=== PATIENT | male | born 1930 | race Caucasian/White ===

== ENCOUNTER 2017-10-24 18:16 | Observation (INO) | payer OTHER, MEDICARE ==
--- NOTE | 2017-10-24 19:17 | CPEKG ---
Heart Rate: 58 RR Interval: 1034 P-R Interval: 200 QRSD Interval: 88 QT Interval: 444 QTC Interval: 437 P [place]: -35 QRS [place]: -15 T Wave [place]: 6 EKG Severity - ABNORMAL ECG - EKG Impression: SINUS RHYTHM EKG Impression: MULTIPLE VENTRICULAR PREMATURE COMPLEXES EKG Impression: BORDERLINE LEFT AXIS DEVIATION Electronically Signed By: Danny Alvarez 24-Oct-2017 19:29:22
[2017-10-24] MEDS ORDERED: NS 1,000 ML IV ONE (19:23)
--- NOTE | 2017-10-24 19:32 | EDPHY ---
H & P Stated Complaint: LIGHTHEADED FOR WEEKS/SAW PCP CHEST FEELS WEIRD/NO PAIN Time Seen by Provider: 10/24/17 19:12 HPI/ROS: CHIEF COMPLAINT: Lightheadedness HISTORY OF PRESENT ILLNESS: Patient is an 87-year-old man with a history of hypertension as well as mild aortic and mitral valve stenosis who is been complaining of increasing lightheadedness over last few weeks. His primary doctor Lev ordered an echo but cannot be scheduled for few weeks out so Dr. Ohara recommended the patient come to the ER to have an echo today. He denies having any pain. No shortness of breath. No fevers or cough. He reports having a CT with contrast of his neck in July that was normal. The his last echo was several years ago. He has not felt palpitations or dizziness. REVIEW OF SYSTEMS: Constitutional: denies: chills, fever, recent illness, recent injury EENTM: denies: blurred vision, double vision, nose congestion Respiratory: denies: cough, shortness of breath Cardiac: See HPI denies: chest pain, irregular heart rate, palpitations Gastrointestinal/Abdominal: denies: abdominal pain, diarrhea, nausea, vomiting, blood streaked stools Genitourinary: denies: dysuria, frequency, hematuria, pain Musculoskeletal: denies: joint pain, muscle pain Skin: denies: lesions, rash, jaundice, bruising Neurological: denies: headache, numbness, paresthesia, tingling, dizziness, weakness Hematologic/Lymphatic: denies: blood clots, easy bleeding, easy bruising Immunologic/allergic: denies: HIV/AIDS, transplant EXAM: GENERAL: Well-appearing, well-nourished and in no acute distress. HEAD: Atraumatic, normocephalic. EYES: Pupils equal round and reactive to light, extraocular movements intact, sclera anicteric, conjunctiva are normal. ENT: TMs normal, nares patent, oropharynx clear without exudates. Moist mucous membranes. NECK: Normal range of motion, supple without lymphadenopathy or JVD. LUNGS: Breath sounds clear to auscultation bilaterally and equal. No wheezes rales or rhonchi. HEART: Bradycardic and irregular, without murmurs, rubs or gallops. ABDOMEN: Soft, nontender, normoactive bowel sounds. No guarding, no rebound. No masses appreciated. BACK: No CVA tenderness, no spinal tenderness, step-offs or deformities EXTREMITIES: Normal range of motion, no pitting or edema. No clubbing or cyanosis. NEUROLOGICAL: Cranial nerves II through XII grossly intact. Normal speech, normal gait. 5/5 strength, normal movement in all extremities, normal sensation PSYCH: Normal mood, normal affect. SKIN: Warm, dry, normal turgor, no visible rashes or lesions. Source: Patient, Family Exam Limitations: No limitations - Personal History Current Tetanus Diphtheria and Acellular Pertussis (TDAP): Yes Tetanus Vaccine Date: 2006 - Medical/Surgical History Hx Asthma: No Hx Chronic Respiratory Disease: No Hx Diabetes: No Hx Cardiac Disease: Yes Hx Renal Disease: No Hx Cirrhosis: No Hx Alcoholism: No Hx HIV/AIDS: No Hx Splenectomy or Spleen Trauma: No Other PMH: PMHx: Mild mitral and aortic valve stenosis, hypothyroidism,. PSHx : bilat shoulder surgeries,L hip, lumbar laminectomies, lymph gland removal, cataracts, appy - Family History Significant Family History: No pertinent family hx - Social History Smoking Status: Former smoker Alcohol Use: Sober Drug Use: None Constitutional: Initial Vital Signs Temperature (C) 36.3 C 10/24/17 18:23 Heart Rate 58 L 10/24/17 18:23 Respiratory Rate 18 10/24/17 18:23 Blood Pressure 165/80 H 10/24/17 18:23 O2 Sat (%) 95 10/24/17 18:23 O2 Delivery Mode Room Air Allergies/Adverse Reactions: Penicillins Allergy (Mild, Verified 10/24/17 18:23) Rash EGGPLANT Allergy (Severe, Uncoded 01/24/12 13:40) Anaphylaxis Home Medications: Medication Instructions Recorded Ascorbic Acid [Vitamin C 500 mg 1,000 mg PO BID 10/08/12 (*)] Aspirin [Aspirin 81mg (*)] 81 mg PO DAILY 10/08/12 Cyanocobalamin [Vitamin B12 (*)] 5,000 mcg PO BID 10/08/12 Herbals/Supplements -Info Only 1 each PO AD 10/08/12 TELMISARTAN [MICARDIS] 80 mg PO DAILY 10/08/12 Atorvastatin Calcium 80 mg PO DAILY 10/24/17 Indapamide [INDAPAMIDE] 1.25 mg PO DAILY 10/24/17 Levothyroxine [Synthroid 200 mcg 200 mcg PO DAILY06 10/24/17 (*)] Medical Decision Making - Diagnostics EKG Interpretation: An EKG obtained and was read and documented in trace view. Please see trace view for full reading and report. Sinus bradycardia with multiple PVCs, no acute ischemic changes Imaging: Discussed imaging studies w/ baseboard heating installer Radiologist ED Course/Re-evaluation: 7:30 p.m. the patient is having symptomatic bradycardia. I recommended admission to the hospital after we obtain lab work. Patient is hesitant but eventually agreed. 8:00 p.m. I discussed the case with Dr. Bradford who will admit to the medical service. Differential Diagnosis: Partial list of the Differential diagnosis considered include but were not limited to; bradycardia, pre syncope, dehydration, anemia and although unlikely based on the history and physical exam, I also considered anxiety, acute coronary disease, P, CHF. Critical Care Time: Critical care time spent by me, Dr. Alvarez exclusive with this patient was 35 minutes, exclusive of the PA time exclusive of procedures. The organ system that was at risk was cardiovascular and I gave monitoring, IV fluids, admission to prevent worsening of the patient's condition - Data Points Laboratory Results: Laboratory Results 10/24/17 19:16 10/24/17 19:16 Medications Given: Discontinued Medications Aspirin (Aspirin) 81 mg PO DAILY [facility] Stop: 04/23/18 08:59 Last Admin: 10/25/17 09:35 Dose: 81 mg Atorvastatin Calcium (Lipitor) 80 mg PO DAILY [facility] Stop: 04/23/18 08:59 Last Admin: 10/25/17 09:36 Dose: 80 mg Enoxaparin Sodium (Lovenox) 40 mg SC DAILY [facility] Stop: 04/23/18 08:59 Last Admin: 10/25/17 09:35 Dose: 40 mg Sodium Chloride (Ns) 1,000 mls @ 0 mls/hr IV EDNOW ONE; Wide Open PRN Reason: Protocol Stop: 10/24/17 19:24 Last Admin: 10/24/17 19:58 Dose: 1,000 mls Indapamide (Indapamide) 1.25 mg PO DAILY [facility] Stop: 04/23/18 08:59 Last Admin: 10/25/17 09:59 Dose: 1.25 mg Levothyroxine Sodium (Synthroid) 200 mcg PO DAILY06 [facility] Stop: 04/23/18 05:59 Last Admin: 10/25/17 06:55 Dose: 200 mcg Telmisartan (Micardis) 80 mg PO HS [facility] Stop: 04/22/18 22:26 Last Admin: 10/24/17 22:51 Dose: 80 mg Vitamin B Complex (Vitamin B12) 5,000 mcg PO BID [facility] Stop: 04/23/18 08:59 Last Admin: 10/25/17 09:35 Dose: 5,000 mcg Point of Care Test Results: Chemistry 10/24/17 19:29 POC Troponin I 0.03 ng/mL ng/mL (0.00-0.08) Departure - Departure Disposition: [facility] Acute Clinical Impression: Bradycardia Condition: Fair
[2017-10-24 19:41] LABS: PLATELET COUNT 168 10^3/uL (150-400)
[2017-10-24 19:52] LABS: INR 0.97 (0.83-1.16); PROTIME(PATIENT) 13.1 SEC (12.0-15.0)
--- NOTE | 2017-10-24 20:52 | PDGENHP ---
History and Physical - Chief Complaint Lightheadedness - History of Present Illness This 87-year-old male with history of aortic and mitral stenosis presents to the emergency department with worsening lightheadedness. The patient has had bouts of lightheadedness off and on for the past few weeks. Denies any vertigo. Denies any chest pain. Denies any palpitations. He has not passed out. He describes his lightheadedness is feeling unsteady and is sometimes associated with some nausea. He has been scheduled for an echocardiogram, but this cannot be done until later this month. He has no orthopnea. He denies any dyspnea on exertion. Denies any leg swelling. He has been compliant with his medications. Emergency department he was found to be slightly bradycardic in the 50s with multiple PVCs History Information - Allergies/Home Medication List Allergies/Adverse Reactions: Penicillins Allergy (Mild, Verified 10/24/17 18:23) Rash EGGPLANT Allergy (Severe, Uncoded 01/24/12 13:40) Anaphylaxis Home Medications: Ascorbic Acid [Vitamin C 500 mg (*)] 1,000 mg PO BID 10/08/12 [Last Taken ] Aspirin [Aspirin 81mg (*)] 81 mg PO DAILY 10/08/12 [Last Taken 03/10/16] Cyanocobalamin [Vitamin B12 (*)] 5,000 mcg PO BID 10/08/12 [Last Taken 03/10/16] Herbals/Supplements -Info Only 1 each PO AD 10/08/12 [Last Taken 03/10/16] TELMISARTAN [MICARDIS] 80 mg PO DAILY 10/08/12 [Last Taken 10/23/17] Atorvastatin Calcium 80 mg PO DAILY 10/24/17 [Last Taken 10/24/17] Indapamide [INDAPAMIDE] 1.25 mg PO DAILY 10/24/17 [Last Taken 10/24/17] Levothyroxine [Synthroid 200 mcg (*)] 200 mcg PO DAILY06 10/24/17 [Last Taken ] I have personally reviewed and updated: family history, medical history, social history, surgical history Past Medical History: Hypertension, hypothyroidism, hyperlipidemia, aortic and mitral stenosis - Surgical History Additional surgical history: Lumbar laminectomy, bilateral shoulder replacements , right hip replacement, appendectomy, right hand surgery - Family History Positive for: hypertension (Mother) - Social History Smoking Status: Former smoker Alcohol Use: Sober Drug Use: None Review of Systems Review of Systems: ROS: 10pt was reviewed & negative except for what was stated in HPI & below Physical Exam Physical Exam: Temp Pulse Resp BP Pulse Ox 36.3 C 58 L 18 165/80 H 95 10/24/17 18:23 10/24/17 18:23 10/24/17 18:23 10/24/17 18:23 10/24/17 18:23 Constitutional: no apparent distress, appears nourished, not in pain Eyes: PERRL, anicteric sclera, EOMI Ears, Nose, Mouth, Throat: moist mucous membranes, hearing normal, ears appear normal, no oral mucosal ulcers Cardiovascular: regular rate and rhythym, systolic murmur, No JVD, No edema Respiratory: no respiratory distress, no rales or rhonchi, clear to auscultation Gastrointestinal: normoactive bowel sounds, soft, non-tender abdomen, no palpable masses Genitourinary: no bladder fullness, no bladder tenderness Skin: warm, normal color, no rashes or abrasions, no fluctuance, no induration, No mottled Musculoskeletal: full muscle strength, no muscle tenderness, normal joint ROM, no joint effusions Neurologic: AAOx3, CN II-XII Intact, No facial droop Psychiatric: interacting appropriately, not anxious, not encephalopathic, thought process linear Lymph, Heme, Immunologic: no cervical LAD, no supraclavicular LAD Lab Data & Imaging Review 10/24/17 19:16 10/24/17 19:16 WBC 4.79 10^3/uL (3.80-9.50) 10/24/17 19:16 RBC 3.20 10^6/uL (4.40-6.38) L 10/24/17 19:16 Hgb 12.0 g/dL (13.7-17.5) L 10/24/17 19:16 Hct 34.3 % (40.0-51.0) L 10/24/17 19:16 MCV 107.2 fL (81.5-99.8) H 10/24/17 19:16 MCH 37.5 pg (27.9-34.1) H 10/24/17 19:16 MCHC 35.0 g/dL (32.4-36.7) 10/24/17 19:16 RDW 13.5 % (11.5-15.2) 10/24/17 19:16 Plt Count 168 10^3/uL (150-400) 10/24/17 19:16 MPV 9.7 fL (8.7-11.7) 10/24/17 19:16 Neut % (Auto) 59.7 % (39.3-74.2) 10/24/17 19:16 Lymph % (Auto) 26.3 % (15.0-45.0) 10/24/17 19:16 Ward % (Auto) 11.3 % (4.5-13.0) 10/24/17 19:16 Eos % (Auto) 1.9 % (0.6-7.6) 10/24/17 19:16 Baso % (Auto) 0.4 % (0.3-1.7) 10/24/17 19:16 Nucleat RBC Rel Count 0.0 % (0.0-0.2) 10/24/17 19:16 Absolute Neuts (auto) 2.86 10^3/uL (1.70-6.50) 10/24/17 19:16 Absolute Lymphs (auto) 1.26 10^3/uL (1.00-3.00) 10/24/17 19:16 Absolute Monos (auto) 0.54 10^3/uL (0.30-0.80) 10/24/17 19:16 Absolute Eos (auto) 0.09 10^3/uL (0.03-0.40) 10/24/17 19:16 Absolute Basos (auto) 0.02 10^3/uL (0.02-0.10) 10/24/17 19:16 Absolute Nucleated RBC 0.00 10^3/uL (0-0.01) 10/24/17 19:16 Immature Gran % 0.4 % (0.0-1.1) 10/24/17 19:16 Immature Gran # 0.02 10^3/uL (0.00-0.10) 10/24/17 19:16 PT 13.1 SEC (12.0-15.0) 10/24/17 19:16 INR 0.97 (0.83-1.16) 10/24/17 19:16 APTT 30.7 SEC (23.0-38.0) 10/24/17 19:16 Sodium 133 mEq/L (135-145) L 10/24/17 19:16 Potassium 4.2 mEq/L (3.3-5.0) 10/24/17 19:16 Chloride 100 mEq/L (97-110) 10/24/17 19:16 Carbon Dioxide 26 mEq/l (22-31) 10/24/17 19:16 Anion Gap 7 mEq/L (8-16) L 10/24/17 19:16 BUN 32 mg/dL (7-23) H 10/24/17 19:16 Creatinine 1.2 mg/dL (0.7-1.3) 10/24/17 19:16 Estimated GFR 57 10/24/17 19:16 Glucose 95 mg/dL (70-100) 10/24/17 19:16 Calcium 9.1 mg/dL (8.5-10.4) 10/24/17 19:16 Total Bilirubin 0.9 mg/dL (0.1-1.4) 10/24/17 19:16 Conjugated Bilirubin 0.5 mg/dL (0.0-0.5) 10/24/17 19:16 Unconjugated Bilirubin 0.4 mg/dL (0.0-1.1) 10/24/17 19:16 AST 31 IU/L (17-59) 10/24/17 19:16 ALT 43 IU/L (21-72) 10/24/17 19:16 Alkaline Phosphatase 54 IU/L (38-126) 10/24/17 19:16 POC Troponin I 0.03 ng/mL (0.00-0.08) 10/24/17 19:29 Total Protein 6.6 g/dL (6.3-8.2) 10/24/17 19:16 Albumin 3.8 g/dL (3.5-5.0) 10/24/17 19:16 Visualized and Interpreted Chest x-ray results: Yes Chest X-Ray results: no infiltrate, normal Visualized and Interpreted EKG results: Yes EKG Interpretation: Positive for: normal sinsus rhythm (With multiple PVCs) Assessment & Plan Assessment: This 87-year-old male presenting with lightheadedness found to have: # Bradycardia with multiple PVCs in the setting of valvular heart disease # macrocytic anemia # history of hypertension # history of hypothyroidism # history of dyslipidemia Plan: -monitor on telemetry -echocardiogram -cardiology consultation in the morning -monitor blood pressure -check TSH -check vitamin B12, methylmalonic acid, homocystine, and folic acid levels
[2017-10-24] MEDS ORDERED: TELMISARTAN 40 MG TAB PO SCH (22:28)
[2017-10-25] MEDS ORDERED: LEVOTHYROXINE 200 MCG TAB PO SCH (06:00)
[2017-10-25] MEDS ORDERED: ENOXAPARIN 40 MG/0.4 ML SYR SC SCH (09:00)
[2017-10-25] MEDS ORDERED: ATORVASTATIN CALCIUM 40 MG TAB PO SCH (09:00)
[2017-10-25] MEDS ORDERED: ASPIRIN 81 MG CHEWABLE TAB PO SCH (09:00)
[2017-10-25] MEDS ORDERED: TELMISARTAN 40 MG TAB PO SCH (09:00)
[2017-10-25] MEDS ORDERED: CYANO/VITAMIN B12 1000 MCG TAB PO SCH (09:00)
[2017-10-25] MEDS ORDERED: INDAPAMIDE 2.5 MG TAB PO SCH (09:00)
--- NOTE | 2017-10-25 10:31 | ECHO ---
[email or web address] [address] Main: [phone] Fax: [email or web address] Echocardiogram Name: ANTOINE SORENSON MR#: [id number] Study Date: 10/25/2017 Study Time: 08:33 AM Date of : 1930 Age: 87 year(s) Height: 182.9 cm (72 in.) Weight: 79.38 kg (175 lb.) BSA: 2.01 m2 Gender: Male Examination: Echo Indication: f/u aortic stenosis and mitral stenosis Image Quality: Adequate Contrast: Requested by: Chicho Bradford BP: 145 mmHg/64 mmHg Heart Rate: Rhythm: Indication: f/u aortic stenosis and mitral stenosis Procedure Staff National Coverage Specialist: Heather Garcia [facility] Reading Physician: Emir Wilson MD Requesting Provider: Conclusions: Normal size left ventricle. Borderline concentric LV hypertrophy. Normal global systolic LV function. EF is 62 %. Grade 2 diastolic dysfunction (pseudonormalized LV filling pattern). Mildly dilated right ventricle. Normal RV function. The left atrium is severely dilated. The right atrium is severely dilated. Mild to moderate mitral regurgitation. Moderate aortic cusp calcification is present. Moderate calcific aortic valve stenosis. Peak Aortic Velocity of 3.41 m/s, Peak gradient 47 mmHg, mean gradient 31 mmHg, AVA1.0 cm2 (moderate aortic stenosis). Right ventricular systolic pressure measures 37mmHg. Mildly dilated ascending aorta measuring 3.8 cm. Measurements: Chambers Valvular Assessment AV/MV Valvular Assessment TV/PV Normal Normal Normal Name Value Range Name Value Range Name Value Range Ao Jenna (MM): 3.2 cm (2.2 cm-3.7 AV Vmax: 3.41 m/s (1 m/s-1.7 TR Vmax: 2.59 mm/s ( - ) cm) m/s) TR PGmax: 27 mmHg ( - ) IVSd (2D): 1.1 cm (0.6 cm-1.1 AV maxP mmHg ( - ) syst. PAP: 37 mmHg ( - ) cm) AV meanP mmHg ( - ) PV Vmax: 0.92 m/s (0.6 m/s-0.9 LVDd (2D): 4.6 cm (4.2 cm-5.9 LVOT Vmax: 0.90 m/s (0.7 m/s-1.1 m/s) cm) m/s) PV PGmax: 3 mmHg ( - ) LVDs (2D): 3.3 cm (2.1 cm-4 LUZ (Vmax): 1.0 cm2 ( - ) cm) LUZ (VTI): 1.0 cm ( - ) AR (PHT): 669 ms ( - ) Patient: ANTOINE SORENSON Study Date: 10/25/2017 Page 1 of 08:33 AM LVPWd (2D): 1.0 cm (0.6 cm-1 MV E Vmax: 0.67 m/s ( - ) cm) MV A Vmax: 0.48 m/s ( - ) LVOTd 2.2 cm 2.2 cm mm MV E/A: 1.40 ( - ) LVEF (BP): 62 % (>=55 %) RVDd(2D): 4.2 cm (1.9 cm-3.8 cmmm) Continued Measurements: Chambers Valvular Assessment AV/MV Valvular Assessment TV/PV Name Value Name Value Name Value LADs Lon.2 cm MV DecTime: 317 m/s CVP (est.): 10 mmHg LA Area: 28.9 cm2 MV E' Septal: 0.06 m/s LA Volume: 109 ml MV E/E' Septal: 10.90 LA Volume Index: 54.2 ml/m2 MV E/E' Lateral: 10.90 TAPSE: 2.9 cm AR Vmax: 3.40 cm/s RA Area: 22.6 cm2 Additional Vessels Name Value Ao Ascendin.8 cm Findings: Left Ventricle: Normal size left ventricle. Borderline concentric LV hypertrophy. Normal global systolic LV function. EF is 62 %. No regional wall motion abnormality. Grade 2 diastolic dysfunction (pseudonormalized LV filling pattern). Right Ventricle: Mildly dilated right ventricle. Normal RV function. Left Atrium: The left atrium is severely dilated. Right Atrium: The right atrium is severely dilated. Mitral Valve: There is mild thickening of the mitral valve leaflets. Mild mitral annular calcification. Mild to moderate mitral regurgitation. No mitral stenosis is present. Aortic Valve: The aortic valve is tri-leaflet. Moderate aortic cusp calcification is present. Moderate calcific aortic valve stenosis. Mild aortic valve regurgitation is present. Peak Aortic Velocity of 3.41 m/s, Peak gradient 47 mmHg, mean gradient 31 mmHg, AVA1.0 cm2 (moderate aortic stenosis). Tricuspid Valve: The tricuspid valve is normal in appearance and function. Trivial to mild tricuspid valve regurgitation. Right ventricular systolic pressure measures 37mmHg. The pulmonary artery pressure is slightly increased. Pulmonic Valve: Pulmonary valve not well visualized. Trivial pulmonic valve regurgitation. Aorta: Normal size aortic root measuring 3.2 cm. Mildly dilated ascending aorta measuring 3.8 cm. Pericardium: No pericardial effusion. (No Signature Object) Patient: ANTOINE SORENSON Study Date: 10/25/2017 Page 2 of 2 08:33 AM [id number]
[2017-10-25 12:16] VITALS: BP 115/55
--- NOTE | 2017-10-25 13:01 | GCON ---
[f rep st] CONSULTATION CARDIOLOGY CONSULTATION DATE OF CONSULTATION: 10/25/2017 INDICATION FOR CONSULTATION: Lightheadedness. HISTORY OF PRESENT ILLNESS: The patient is a pleasant 87-year-old gentleman with a known history of moderate aortic stenosis, ascending thoracic aortic aneurysm measuring 4.0 x [address] scan from J une 2017, essential hypertension, hyperlipidemia, hypothyroidism, and follicular lymphoma, who presen kasey yesterday to [facility] secondary to ongoing complaints of i ntermittent lightheadedness. He had been seen early last week by his primary care physician, Dr. Ohara, who had recommended he be seen by Cardiology. He has been seen in the past by Dr. He Garcia. In the setting of his sym ptoms progressing, he was re-directed to [facility] for further evaluation. Currently, at the time of my exam, he is resting comfortably without complaints of lightheadedness. In summary, the patient states that he was in his usual state of health until early September 2017 when he began to have intermittent episodes of lightheadedness. He states these episodes can last for 15-20 minutes. He denies any exacerbating or alleviating factors. He states these episodes have occurred while sitting at rest without change in position, but are more frequently associated with change in p osition. These episodes are not associated with syncope. He denies any associated palpitations, fidencio sea, vomiting, or diaphoresis. No associated shortness of breath, dyspnea, chest pain, chest pressur e. He has no complaints of new onset of exertional fatigue, PND, orthopnea, or lower extremity edema . He has no complaints of exertional chest pain or chest pressure. He presented to [facility] yesterday secondary to a prolonged episode of lightheadedn ess lasting for several hours, prompting him to seek further evaluation. Upon his arrival in the emergency department last evening, ECG demonstrated sinus rhythm at 58 beats per minute with borderline first-degree AV block with p.o. interval of 200 milliseconds and multiple premature ventricular contractions. Vital signs in the emergency room included respiratory rate of 1 8, oxygen saturation 95% on room air and a blood pressure of 165/80. Again, he describes episodes of lightheadedness that began since early September, often associated with shayne nge in position, but do occur also at rest. Episodes of lightheadedness last for 15-20 minutes and m ost recently up to several hours. The episodes are occurring with slightly increasing frequency. No associated near-syncope or syncope. No associated palpitations, chest pain, chest pressure. He has been physically active. He exercises regularly at the local [facility] including walking on a tread mill, stationary bike, weightlifting, Pilates classes and yoga. He denies any complaints of exertion al intolerance or fatigue. PAST MEDICAL HISTORY: 1. Coronary artery disease based on calcium score, thoracic aortic aneurysm which has been closely f ollowed and stable with most recent study from October 2016 measuring 4.0 x 4.3 cm, which was unchanged compared to study in October 2015. 2. Moderate calcific aortic stenosis. 3. Hypertension. 4. Hyperlipidemia. 5. Hypothyroidism. 6. Macrocytosis. 7. 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 SOCIAL HISTORY: He is . He lives with his . He is a nonsmoker. MEDICATIONS ON ADMISSION: Include aspirin 81 mg daily, atorvastatin 80 mg daily, Micardis 80 mg elías y, Synthroid 200 mcg daily, and indapamide 1.25 mg daily, B12 5000 mcg p.o. b.i.d., vitamin C 1000 mg p.o. b.i.d. ALLERGIES TO MEDICATIONS: Include penicillin, which resulted in a rash, and eggplant resulted in loi phylaxis. FAMILY HISTORY: Noncontributory. PHYSICAL EXAMINATION: VITAL SIGNS: Blood pressure 145/64, heart rate 54, sinus bradycardia, respira tory rate of 15, oxygen saturation 97% on 2 liters, temperature 36.8. GENERAL: He is awake, alert, oriented, appropriate. No apparent distress. NECK: There is no evidence of JVP. Carotid bruits ar e undetectable secondary to audible murmur from his aortic valve. LUNGS: Clear to auscultation bila terally. CARDIAC: S1, S2 regular. There is a 2/6 systolic murmur loudest at the right upper sterna l border and audible throughout the precordium with radiation to bilateral carotids. PMI is mildly d isplaced laterally. ABDOMEN: Soft, nontender. nontender, nondistended. There is no pulsatile mass or abdominal bruit. EXTREMITIES: There is no evidence of cyanosis, clubbing or edema. Distal pulse s are intact. DATA: White blood cell count 4.8, hemoglobin 12, hematocrit 34.3, platelets 168. Sodium of 133, pot assium 4.2, chloride 100, bicarb 26, BUN 32, creatinine 1.2. N-terminal proBNP 536. TSH 0.735. B12 level greater than a 1000. Folate greater than 20. AST 31, ALT 43. Echocardiogram demonstrates normal left ventricular systolic function with no evidence of wall motion abnormalities. He has moderate calcific aortic stenosis and trileaflet aortic valve with peak veloc ity of 3.41 m/sec., peak gradient of 47 and mean gradient of 31 mmHg. Of note, previous echocardiogr am performed at [facility] in 2016 had a peak velocity of 3.5 m/sec., peak gradient of 52 and mean of 29 mmHg. EKG demonstrates sinus bradycardia at 58 beats per minute with PVCs. Telemetry demonstrates sinus bradycardia with frequent PVCs. No prolonged pauses and no documented s ignificant bradycardia. IMPRESSION: 1. Lightheadedness. 2. Moderate aortic stenosis. 3. Coronary artery disease based on calcium score. 4. Hypertension. 5. Hyperlipidemia. 6. History of follicular lymphoma. 7. Stable thoracic aortic aneurysm. DISCUSSION: The patient is a pleasant 87-year-old gentleman with new onset of intermittent episodes of lightheadedness. He has had episodes at rest without change in position. Findings are not consis tent with vasovagal symptoms. Concern for possible conduction system disease in the setting of calci fic aortic stenosis and evidence of aortic and mitral annular calcifications. He has had no marked b radycardia or pauses that would make him an appropriate candidate for pacemaker at this point. He is currently resting comfortably. PLAN: 1. Bilateral carotid Doppler to be performed today. 2. If Doppler is unremarkable, would discharge home. 3. Arrange for exercise nuclear stress test in our office at [facility] next week. 4. Arrange for 2-week preventive heart monitor to be placed next week. 5. Will follow up with me in the office after completion of above workup. 6. I have recommended that he not travel to [place] or [place] as he had planned to do, and stay locally in case his symptoms progress. I have reviewed my concerns with both Mr. Kraus and his . I have answered all of their questions. /[id number]/MODL
--- NOTE | 2017-10-25 14:52 | GDS ---
[f rep st] DISCHARGE SUMMARY ALL DIAGNOSES: 1. Lightheadedness. 2. Moderate aortic calcific stenosis. 3. Mild bradycardia. 4. Premature ventricular contractions. 5. Hypertension. 6. Hypothyroid. 7. Hyperlipidemia. 8. Macrocytic anemia. 9. Mild hyponatremia. STUDIES PENDING AT THE TIME OF DISCHARGE: Methylmalonic acid. HOSPITAL COURSE: 87-year-old man presents with lightheadedness. Had been scheduled for an outpatien t echocardiogram. He was admitted to the hospital for further workup. Telemetry revealed mild krzysztof cardia with no significant pauses or other arrhythmias. Echocardiogram showed some moderate valvular disease with moderate calcific stenosis being the most notable. An ultrasound of his carotids showe d mild plaque bifurcation; however, no flow-limiting stenosis. Seen by Cardiology. Recommendation i s for outpatient stress test then longer-term rhythm monitoring. This will be arranged on Friday by the office of [facility]. I have discussed all this with Mr. Kraus as well as his , and they are comfortable with this plan. I have discussed his high dose B12 supplement. Recommend discussin g with Dr. Flores whether this is necessary or not. He also follows up with Dr. Sanz for his m acrocytic anemia as well as a low-grade lymphoma that was treated with radiation. He will continue a s such. /[id number]/MODL
--- NOTE | 2017-10-25 15:55 | ASMTCMCOM ---
CM Note CM Note Notes: CM chart review, patient is 87 year old male who presented with lightheadedness and monitored for bradycardia. Patient to be d/c today and scheduled to f/u with [facility]. CM met with patient and , IM delivered and signed for reciept. will be driving patient home and they state there are no d/c concerns/needs to address at this time. CM available if needed. D/C Plan: Discharge home independtly today. Date Signed: 10/25/2017 03:54 PM Electronically Signed By:Selene Duncan
--- NOTE | 2017-10-25 15:58 | ASDISCHSUM ---
Discharge Information Plan Status:Has needs-TBD Medically Cleared to Leave:10/25/2017 Discharge Date:10/25/2017 CM D/C Disposition:Home, Routine, Self-Care ADT D/C Disposition:Home, Routine, Self-Care Projected Discharge Date:10/25/2017 Transportation at D/C:Family Discharge Delay Reason: Follow-Up Date:10/25/2017 Discharge Slot:2 - 12:01 pm - 18:00 pm Final Diagnosis:bradycardia Placement Information Patient Contact Information Contact Name:GARCIA Relationship: Address:[address] City:[place] Alternate Phone: State/Zip Code:[place] [address] Email: Financial Information Financial Class:Medicare Primary Plan Desc:MEDICARE OUTPATIENT Primary Plan Number:[id number] Secondary Plan Desc:[employer]ARP/MDR SUPPLEMENT Secondary Plan Number:[id number] Assessment Information [facility] CM Progress Note CM Note CM Note Notes: CM chart review, patient is 87 year old male who presented with lightheadedness and monitored for bradycardia. Patient to be d/c today and scheduled to f/u with [facility]. CM met with patient and , IM delivered and signed for reciept. will be driving patient home and they state there are no d/c concerns/needs to address at this time. CM available if needed. D/C Plan: Discharge home independtly today. Date Signed: 10/25/2017 03:54 PM Electronically Signed By:Selene Duncan Intervention Information Intervention Type:*IM-Signed Date of Service:10/25/2017 03:57 PM Patient Type:Observation Staff Member:Selene Duncan Hours: Discipline: Severity: Comment:
== END 2017-10-25 16:45 | disposition home or self-care (01) ==
LOC: F2W 21:32
PROVIDERS: ADMIT Family Medicine; ATTEND Student in an Organized Health Care Education/Training Program
DX: R42 Dizziness and giddiness (principal); R00.1 Bradycardia, unspecified; I35.0 Nonrheumatic aortic (valve) stenosis; I49.3 Ventricular premature depolarization; E87.1 Hypo-osmolality and hyponatremia; I77.9 Disorder of arteries and arterioles, unspecified; I10 Essential (primary) hypertension; R93.1 Abnormal findings on diagnostic imaging of heart and coronary circulation; I71.2 Thoracic aortic aneurysm, without rupture; E03.9 Hypothyroidism, unspecified; E78.5 Hyperlipidemia, unspecified; E86.9 Volume depletion, unspecified; D53.9 Nutritional anemia, unspecified; C82.90 Follicular lymphoma, unspecified, unspecified site; I34.0 Nonrheumatic mitral (valve) insufficiency; Z79.82 Long term (current) use of aspirin; Z87.891 Personal history of nicotine dependence; Z92.3 Personal history of irradiation; Z96.641 Presence of right artificial hip joint; Z96.611 Presence of right artificial shoulder joint; Z96.612 Presence of left artificial shoulder joint; Z88.0 Allergy status to penicillin
CPT/HCPCS: 71046; 93005; 93306; 93880; 96360; 99291; G0378; J1650; 82607-90; 83921-90; 84484-PO

== ENCOUNTER → 2017-10-30 | Outpatient (CLI) | payer OTHER, MEDICARE | LOC: BHFA 14:00 | PROVIDERS: ATTEND Internal Medicine Cardiovascular Disease | DX: I49.3 Ventricular premature depolarization (principal); R42 Dizziness and giddiness | CPT/HCPCS: 78452; 93017; A9500 ==

== ENCOUNTER 2017-12-14 18:56 | Emergency (ER) | payer OTHER, MEDICARE ==
--- NOTE | 2017-12-14 19:22 | CPEKG ---
Heart Rate: 54 RR Interval: 1111 P-R Interval: 212 QRSD Interval: 80 QT Interval: 440 QTC Interval: 417 P [place]: -29 QRS [place]: -15 T Wave [place]: 5 EKG Severity - OTHERWISE NORMAL ECG - EKG Impression: SINUS ARRHYTHMIA, RATE 43-60 EKG Impression: BORDERLINE LEFT AXIS DEVIATION Electronically Signed By: Meli Peña 14-Dec-2017 23:51:17
--- NOTE | 2017-12-14 20:04 | EDPHY ---
H & P Stated Complaint: HTN Time Seen by Provider: 12/14/17 19:31 HPI/ROS: CHIEF COMPLAINT: Concerned about blood pressure HISTORY OF PRESENT ILLNESS: This is an 87-year-old male with a history of hypertension, aortic and mitral stenosis, and atrial fibrillation. He presents to the emergency room tonight concerned about blood pressure readings that he obtained at home. He had a reading 155/80 that concerned him. He states that his blood pressure usually runs 120/70. He was recently evaluated in the hospital (October of 2017) for lightheadedness. At that time he underwent echocardiogram . This was followed by a nuclear stress test and cardiac monitoring. Cardiac monitoring revealed atrial fibrillation. 3 weeks ago he was placed on metoprolol and Eliquis. He had been taking Micardis and his Micardis dose was decreased by half. He denies chest pain, shortness of breath, recent fever, headache, confusion, change in vision, new numbness, and new weakness. He had a mild cough this morning that felt as if he had a "tickle in his throat". He has not had cough since. REVIEW OF SYSTEMS: A ten point review of systems was performed and is negative with the exception of the items mentioned in the HPI. Past medical history: 1. Hypertension 2. Aortic stenosis 3. Mitral stenosis 4. Atrial fibrillation 5. Hypothyroidism 6. Dyslipidemia 7. Macrocytic anemia Past surgical history: 1. Lumbar laminectomy 2. Bilateral shoulder replacements 3. Right hip replacement 4. Appendectomy 5. 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 He is here with his . He quit smoking 50 years ago. He drinks 1/2 glasses of white wine daily. General Appearance: Alert. Vital signs reviewed. Heart rate high 40s to mid 50s. Blood pressure 163/66. Eyes: Pupils equal and round, no conjunctival injection, no discharge. Anicteric. ENT, Mouth: Mucous membranes are moist, no oropharyngeal erythema or edema. Neck: No lymphadenopathy, supple. Respiratory: Lungs are clear to auscultation; no wheezes, rales, or rhonchi. Cardiovascular: Bradycardic in the 50s, 3/4 systolic murmur. Gastrointestinal: Abdomen is soft and nontender, no masses or organomegaly, bowel sounds normal. Skin: Warm and dry, no rashes on exposed skin, normal color. Back: Nontender to palpation over the thoracolumbar spine. No CVAT. Extremities: Trace lower extremity edema slightly worse in the left compared to the right, no calf tenderness or swelling. Neurological: Alert and oriented. Moving all four extremities easily and equally. TOYA. EOMI. Facial expressions symmetric. Tongue midline. Psychiatric: Normal affect. - Personal History Tetanus Vaccine Date: 2006 - Medical/Surgical History Hx Asthma: No Hx Chronic Respiratory Disease: No Hx Diabetes: No Hx Cardiac Disease: Yes Hx Renal Disease: No Hx Cirrhosis: No Hx Alcoholism: No Hx HIV/AIDS: No Hx Splenectomy or Spleen Trauma: No Other PMH: PMHx: Mild mitral and aortic valve stenosis, hypothyroidism, Afib. PSHx: bilat shoulder surgeries,L hip, lumbar laminectomies, lymph gland removal , cataracts, appy - Social History Smoking Status: Former smoker Constitutional: Initial Vital Signs Temperature (C) 36.5 C 12/14/17 19:05 Heart Rate 60 12/14/17 19:05 Respiratory Rate 16 12/14/17 19:05 Blood Pressure 163/66 H 12/14/17 19:05 O2 Sat (%) 92 12/14/17 19:05 O2 Delivery Mode Room Air Allergies/Adverse Reactions: Penicillins Allergy (Mild, Verified 10/24/17 18:23) Rash EGGPLANT Allergy (Severe, Uncoded 01/24/12 13:40) Anaphylaxis Home Medications: Medication Instructions Recorded Ascorbic Acid [Vitamin C 500 mg 1,000 mg PO BID 10/08/12 (*)] Aspirin [Aspirin 81mg (*)] 81 mg PO DAILY 10/08/12 Cyanocobalamin [Vitamin B12 (*)] 5,000 mcg PO BID 10/08/12 Herbals/Supplements -Info Only 1 each PO AD 10/08/12 TELMISARTAN [MICARDIS] 80 mg PO DAILY 10/08/12 Atorvastatin Calcium 80 mg PO DAILY 10/24/17 Indapamide [INDAPAMIDE] 1.25 mg PO DAILY 10/24/17 Levothyroxine [Synthroid 200 mcg 200 mcg PO DAILY06 10/24/17 (*)] Apixaban [Eliquis] 12/14/17 Medical Decision Making - Diagnostics EKG Interpretation: EKG interpreted by ED physician in [facility]. ED Course/Re-evaluation: Patient presents worried about blood pressure. The readings that he obtained at home and the readings in the ED are not concerning. He has no complaints that would suggest acute end organ damage. I reviewed CBC, chemistries, troponin. All are WNL or in line with previous values. He is mildly hyponatremic, also anemic (not new). In the ED his initial blood pressure was 163/66, at discharge 146/73. No specific treatments were given. He had HR in high 50s, also not new. He has an appointment for placement of a Holter monitor tomorrow and plans to keep this appointment. I spoke with Dr. Calloway, who is covering for the patient's esthetician and manager medical spa, Dr. Wilson. Patient will contact tomorrow and apprise him of today's visit. Danger signs that should prompt return to the ED were reviewed. Patient is comfortable returning home and desires to do so. Differential Diagnosis: I considered a ddx that includes but is not limited to sick sinus, afib, heart block, ACS, hypertensive emergency or urgency. - Data Points Laboratory Results: Laboratory Results 12/14/17 19:38 12/14/17 19:38 Point of Care Test Results: Chemistry 12/14/17 20:10 POC Troponin I 0.02 ng/mL ng/mL (0.00-0.08) Departure - Departure Disposition: Home, Routine, Self-Care Clinical Impression: Bradycardia Hypertension Qualifiers: Hypertension type: essential hypertension Qualified Code(s): I10 - Essential ( primary) hypertension Condition: Good Instructions: Chronic Hypertension (ED) Additional Instructions: Keep your appointment tomorrow morning for placement of Holter monitor. Have them check the accuracy of your home blood pressure monitor. Let Dr. Wilson's office staff know that you were in the ED [facility]. I recommend setting up a follow-up appointment with Dr. Wlison later this month. I spoke with Dr. Calloway on the telephone so Dr. Wilson should be aware of [facility]' s visit. If you have lightheadedness, fainting, repeated blood pressure readings that are higher than 200/100, chest pain, trouble breathing, any new or concerning symptoms--please return to the emergency department for re-evaluation. Referrals: Teo Ohara MD [Primary Care Provider] - As per Instructions Emir Wilson MD [Medical Doctor] - As per Instructions
[2017-12-14 20:07] LABS: PLATELET COUNT 149 10^3/uL (150-400)
[2017-12-14 21:23] VITALS: BP 146/73
--- NOTE | 2017-12-15 10:21 | CPEKG ---
Heart Rate: 49 RR Interval: 1224 P-R Interval: 204 QRSD Interval: 84 QT Interval: 444 QTC Interval: 401 P [place]: 18 QRS [place]: -13 T Wave [place]: 2 EKG Severity - OTHERWISE NORMAL ECG - EKG Impression: SINUS BRADYCARDIA EKG Impression: ATRIAL PREMATURE COMPLEX Electronically Signed By: Conner Rodriguez 17-Dec-2017 08:02:51
== END 2017-12-14 21:22 | disposition home or self-care (01) ==
DX: I10 Essential (primary) hypertension (principal); I48.91 Unspecified atrial fibrillation
CPT/HCPCS: 84484-PO

== ENCOUNTER 2017-12-26 14:26 | Inpatient (IN) | payer OTHER, MEDICARE ==
--- NOTE | 2017-12-26 14:51 | CPEKG ---
Heart Rate: 60 RR Interval: 1000 P-R Interval: 212 QRSD Interval: 78 QT Interval: 416 QTC Interval: 416 P [place]: 11 QRS [place]: -6 T Wave [place]: -3 EKG Severity - ABNORMAL ECG - EKG Impression: SINUS RHYTHM EKG Impression: MULTIPLE ATRIAL PREMATURE COMPLEXES EKG Impression: BORDERLINE T WAVE ABNORMALITIES Electronically Signed By: Yadi Wan 26-Dec-2017 16:03:24
[2017-12-26 15:09] LABS: PLATELET COUNT 200 10^3/uL (150-400)
[2017-12-26] MEDS ORDERED: NS 500 ML IV ONE (15:16)
--- NOTE | 2017-12-26 15:17 | EDPHY ---
H & P Stated Complaint: HX A FIB/ON STARTED ELIQUIS/METOPROL IN NOVEMBER/HYPOTENSIVE/ LIGHTHEADED Time Seen by Provider: 12/26/17 14:51 HPI/ROS: CHIEF COMPLAINT: Lightheadedness, hypotension HISTORY OF PRESENT ILLNESS: 87-year-old male with hypertension and atrial fibrillation presents with hypotension. He was diagnosed with atrial fibrillation on 11/27/2017 and placed on metoprolol and Eliquis. Initially his Micardis was cut in half, but his blood pressure was too high. Resumed full dose of Micardis and now on metoprolol 12.5 mg twice daily. Onset of recurrent episodes of lightheadedness yesterday. The lightheadedness tends to occur when he stands up, though symptoms persist while he is sitting down. He measured his blood pressure this morning; pressure was less than 90. 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 5 glasses of water today , does not feel dehydrated. No prior history of hypotension, no black/bloody stools and no recent illness. No other changes in medications. REVIEW OF SYSTEMS: complete 10 point ROS negative except at noted in the HPI - Personal History Current Tetanus Diphtheria and Acellular Pertussis (TDAP): Yes Tetanus Vaccine Date: 2006 - Medical/Surgical History Hx Asthma: No Hx Chronic Respiratory Disease: No Hx Diabetes: No Hx Cardiac Disease: Yes Hx Renal Disease: No Hx Cirrhosis: No Hx Alcoholism: No Hx HIV/AIDS: No Hx Splenectomy or Spleen Trauma: No Other PMH: PMHx: Mild mitral and aortic valve stenosis, hypothyroidism, Afib. PSHx: bilat shoulder surgeries,L hip, lumbar laminectomies, lymph gland removal , cataracts, appy - Social History Smoking Status: Former smoker - Physical Exam Exam: General Appearance: Alert, pleasant Eyes: Pupils equal and round, no conjunctival pallor or injection ENT, Mouth: Mucous membranes moist Neck: Normal inspection Respiratory: Lungs are clear to auscultation Cardiovascular: Regular rate and rhythm, occasional ectopic beat Gastrointestinal: Abdomen is soft and nontender Neurological: A&O, nonfocal exam Skin: Warm and dry Extremities: Nontender, no pedal edema Psychiatric: Mood and affect normal Constitutional: Initial Vital Signs Temperature (C) 36.4 C 12/26/17 14:33 Heart Rate 67 12/26/17 14:33 Respiratory Rate 17 12/26/17 14:33 Blood Pressure 88/62 L 12/26/17 14:33 O2 Sat (%) 96 12/26/17 14:33 O2 Delivery Mode Room Air Allergies/Adverse Reactions: Penicillins Allergy (Mild, Verified 12/26/17 14:32) Rash EGGPLANT Allergy (Severe, Uncoded 01/24/12 13:40) Anaphylaxis Home Medications: Medication Instructions Recorded Ascorbic Acid [Vitamin C 500 mg 1,000 mg PO BID 10/08/12 (*)] Aspirin [Aspirin 81mg (*)] 81 mg PO DAILY 10/08/12 Cyanocobalamin [Vitamin B12 (*)] 5,000 mcg PO BID 10/08/12 Herbals/Supplements -Info Only 1 each PO AD 10/08/12 TELMISARTAN [MICARDIS] 80 mg PO DAILY 10/08/12 Atorvastatin Calcium 80 mg PO DAILY 10/24/17 Indapamide [INDAPAMIDE] 1.25 mg PO DAILY 10/24/17 Levothyroxine [Synthroid 200 mcg 200 mcg PO DAILY06 10/24/17 (*)] Apixaban [Eliquis] 5 mg PO BID 12/26/17 Metoprolol Tartrate 12.5 mg PO BID 12/26/17 Medical Decision Making - Diagnostics EKG Interpretation: EKG interpreted by me reveals normal sinus rhythm, rate 60, PACs, diffuse nonspecific T-wave changes. Interpretation: Abnormal EKG ED Course/Re-evaluation: This patient presents with hypertension, most likely related to metoprolol. Stat EKG reveals no evidence of ischemia or significant dysrhythmia. IV normal saline 500 mL given. Blood pressure after normal saline bolus is 112/63. Hematocrit 37, no clinical h/o GI bleed. Non-toxic appearing and afebrile; doubt infectious etiology. Will admit for further evaluation, consideration of medication change. The hospitalist service was consulted for admission. Differential Diagnosis: includes though not limited to ACS, hemorrhage, medication effect, dysrhythmia, dehydration - Data Points Laboratory Results: Laboratory Results 12/26/17 14:50 12/27/17 03:22 Medications Given: Apixaban (Eliquis) 5 mg PO BID KAEL Stop: 06/25/18 10:29 Last Admin: 12/28/17 08:48 Dose: 5 mg Ascorbic Acid (Vitamin C) 1,000 mg PO BID KAEL Stop: 06/25/18 20:59 Last Admin: 12/28/17 08:49 Dose: 1,000 mg Aspirin (Aspirin) 81 mg PO DAILY KAEL Stop: 06/26/18 08:59 Last Admin: 12/28/17 08:49 Dose: 81 mg Atorvastatin Calcium (Lipitor) 80 mg PO DAILY KAEL Stop: 06/26/18 08:59 Last Admin: 12/28/17 08:49 Dose: 80 mg Levothyroxine Sodium (Synthroid) 200 mcg PO DAILY06 KAEL Stop: 06/25/18 10:29 Last Admin: 12/28/17 06:28 Dose: 200 mcg Vitamin B Complex (Vitamin B12) 5,000 mcg PO BID KAEL Stop: 06/25/18 20:59 Last Admin: 12/28/17 08:48 Dose: 5,000 mcg Discontinued Medications Sodium Chloride (Ns) 500 mls @ 1,000 mls/hr IV EDNOW ONE PRN Reason: Protocol Stop: 12/26/17 15:45 Last Admin: 12/26/17 15:30 Dose: 500 mls Point of Care Test Results: Chemistry 12/26/17 15:00 POC Troponin I 0.04 ng/mL ng/mL (0.00-0.08) Departure - Departure Disposition: [facility] In[facility] Acute Clinical Impression: Hypotension Qualifiers: Hypotension type: unspecified hypotension type Qualified Code(s): I95.9 - Hypotension, unspecified Condition: Fair
[2017-12-26] MEDS ORDERED: ONDANSETRON DISINTEGRATING 4 MG TAB PO PRN (16:05)
[2017-12-26] MEDS ORDERED: ONDANSETRON 4 MG/2 ML VIAL IVP PRN (16:05)
[2017-12-26] MEDS ORDERED: ACETAMINOPHEN 325 MG TAB PO PRN (16:05)
--- NOTE | 2017-12-26 17:20 | GHP ---
[f rep st] HISTORY AND PHYSICAL DATE OF ADMISSION: 12/26/2017 CHIEF COMPLAINT: Lightheadedness, hypotension. PRIMARY GOVERNMENT CLERK: Dr. Wilson. HISTORY OF PRESENT ILLNESS: A pleasant 87-year-old male recently diagnosed with atrial fibrillation, started on metoprolol; hyperlipidemia; moderate , presenting with dizziness for 2 days. Diagnosed with atrial fibrillation November 27 , started on metoprolol 12.5 mg b.i.d. and Eliquis. At that time, Micardis was cut from 80 mg to 40, but after a week, his blood pressure increased, thus resumed his normal dose. He is also on a thiazide diuretic. Lightheadedness occurs when he stands up, but continues even after sitting down. He measured his blood pressure this morning; it was less than 90. Denies fevers, chills, or sweats. No nausea, vomiting, diarrhea. No cough. No chest pain. No shortness of breath. Says he has been drinking 5 glasses of water and eating normally. No bloody or black stools. Recent cardiac evaluation included an echocardiogram, showed moderate with a peak velocity of 47 mmHg, mean 31 mmHg. He has a stable ascending thoracic aneurysm, 4 x 4.3 cm. He had a cardiac stress test that was normal, along with a carotid ultrasound. He wore a Holter monitor for 2 weeks and then after started on a beta gladys for 48 hours. Report 12/10 showed 1 episode of SVT, no bradyarrhythmia. REVIEW OF SYSTEMS: I completed a 10-point review of systems, negative except as noted in HPI. PAST MEDICAL HISTORY: Hyperlipidemia, moderate aortic stenosis, ascending thoracic aneurysm, hypothyroidism, lymphoma. PAST SURGICAL HISTORY: Appendectomy, hip surgery, carpal tunnel, lumbar surgery , shoulder, tonsillectomy. FAMILY HISTORY: Parkinson's and a stroke in father, TIA in mother. SOCIAL HISTORY: Lives with his , been 34 years. Had a 20-pack- year history, quit in his 40s. Drinks 2 glasses of wine a night. No illicits. ALLERGIES: Penicillin and eggplant. HOME MEDICATIONS: Metoprolol 12.5 mg daily, telmisartan 80 mg daily, levothyroxine 200 mcg daily, indapamide 1.25 mg daily, herbal supplement, vitamin B12, atorvastatin 80 mg daily, aspirin 81 daily, ascorbic acid 1000 mg b.i.d., Eliquis 5 mg b.i.d. PHYSICAL EXAMINATION: VITAL SIGNS: Temperature 36.4, blood pressure 88/62, now 127/70, heart rate in the 60s, respiration rate 16, 98% on room air. GENERAL: He is well appearing, no acute distress. HEENT: PERRLA. Moist mucous membranes. CV: Regular rate and rhythm. No lower extremity edema. LUNGS: No crackles or wheezing. ABDOMEN: Soft, nontender, nondistended. : No suprapubic tenderness. MUSCULOSKELETAL: 5/5 upper and lower extremity strength. NEURO: 2 through 12 intact. PSYCH: Alert and oriented x3. LABS: WBC 5, hemoglobin 13, hematocrit 37, platelets 200. Sodium 134, potassium 4.1, chloride 94, carbon dioxide 26, anion gap 14, BUN 31, creatinine 1.4 (baseline is 1), glucose 113. Troponin 0.04. BNP is 4580. EKG is personally reviewed, normal sinus rhythm, first-degree heart block, ST flattening, II, III, aVF, mildly different from prior. ASSESSMENT AND PLAN: 1. Hypotension: suspect from multiple cardiac medications. Will hold these and monitor overnight. Blood pressure improved with fluids. Troponin is negative. I do not think acute coronary syndrome with normal MPI stress test October 2017. Echo showed moderate aortic stenosis. Be cautious with volume status. Monitor on telemetry. Repeat troponin. Dose-reduce BP meds at MT. 2. Acute kidney injury: Creatinine 1.4(BL 1) Check urine lytes. Received fluids in the ED. Encourage p.o. here. Hold telmisartan and diuretic. Repeat BMP in the morning. 3. Hyperlipidemia: Statin. 4. Hypothyroidism: Levothyroxine. 5. Hypertension: Holding antihypertensive with hypotension and acute kidney injury. 6. Atrial fibrillation: Resume beta-gladys in the morning. Continue Eliquis. 7. Diet: Regular. 8. Deep venous thrombosis prophylaxis: On Eliquis. DISPOSITION: Warrants observation admission for arrhythmia, repeat troponin and hydration. /[id number]/MODL MTDD
--- NOTE | 2017-12-27 10:26 | HOSPPROG ---
Hospitalist Progress Note Assessment/Plan: 87-year-old followed by Dr. Emir Wilson with a history of recently diagnosed AFib is admitted with increasing dizziness and near-syncope. He was not found to be hypotensive with mild renal insufficiency overnight his blood pressure medications have been held, his renal function has improved however he is continued you to be symptomatic. # AFib, currently in sinus rhythm. Started on metoprolol and Eliquis few weeks ago as an outpatient and since then has had difficulty managing his blood pressures at home * Continue telemetry * Discussed with Cardiology currently all blood pressure medications including metoprolol are on hold * Blood pressures have been more labile since starting metoprolol, question changing to a different beta-gladys or dc BB altogether * Given ongoing hypotension despite minimizing medications, patient will need additional midnight stay. Will change to inpatient. # hypotension with orthostatics symptoms. * Continue to hold medications * Discussed with Cardiology who will see in consultation to help manage # moderate noted on echocardiogram recently possibly patient more symptomatic when hypotensive given valve disease. * Goal blood pressure greater than 120. # acute renal failure, secondary to hypotension possibly mild dehydration. Continue to monitor # lymphoma # hypothyroidism on replacement Subjective: Patient new to me and chart reviewed, discussed with Cardiology. Was feeling pretty good this morning however custodial through our conversation he started to get symptomatic feeling dizzy lightheaded and a little nauseated. He remained in sinus rhythm throughout this episode however his blood pressure was 100 systolic. Objective: Vital Signs Temp Pulse Resp BP Pulse Ox 36.8 C 64 16 110/61 92 12/27/17 08:00 12/27/17 08:00 12/27/17 08:00 12/27/17 08:00 12/27/17 08:00 Laboratory Results 12/27/17 03:22 12/26/17 12/27/17 12/28/17 05:59 05:59 05:59 Intake Total 400 Balance 400 - Physical Exam Constitutional: no apparent distress, not in pain Eyes: PERRL Ears, Nose, Mouth, Throat: moist mucous membranes Cardiovascular: regular rate and rhythym, systolic murmur Respiratory: no respiratory distress, clear to auscultation Gastrointestinal: normoactive bowel sounds Genitourinary: no bladder fullness Skin: warm, normal color Neurologic: AAOx3 Psychiatric: interacting appropriately ICD10 Worksheet Patient Problems: Problems Problem Status Onset Orthostatic hypotension Acute Dehydration Acute Bradycardia Acute Hypertension Acute Hypotension Acute
[2017-12-27] MEDS: APIXABAN 5 MG TAB PO SCH ×2 (11:27→20:45)
[2017-12-27] MEDS: LEVOTHYROXINE 200 MCG TAB PO SCH (11:27)
--- NOTE | 2017-12-27 12:03 | GHP ---
[f rep st] HISTORY AND PHYSICAL DATE OF ADMISSION: 12/26/2017 CHIEF COMPLAINT: Lightheadedness and hypotension. HPI: This is a very pleasant, 87-year-old gentleman who has been followed by Dr. Wilson at [facility]. He has a history of paroxysmal atrial fibrillation dating back a month or so. He was apparently placed on metoprolol therapy and Eliquis at that time and comes in today yesterday complaining of li ghtheadedness and some orthostatic type changes with movement. He is in normal sinus rhythm and over night has been in normal sinus rhythm with some PVCs. His cardiac workup has included no evidence of ischemia. He has moderate aortic stenosis with a mean gradient of 31. He has had apparently a norm al cardiac stress test and carotid ultrasounds without significant stenosis. Overnight was somewhat hypotensive. Today had an episode of some lightheadedness but his systolic pressure was over 100. I n speaking to him now, he is feeling well. I discussed various options with he and his . We elpidio e decided on the followin. At this point, will continue to hold his hypertensive medications including his diuretic, his bet a-gladys, and his ARB inhibitor. If his blood pressure was to go above 140/90, we will restart Bia rdis at 40 mg p.o. daily. He feels that most of his symptoms are attributed to the institution of e metoprolol a few weeks, if not a month ago, by Dr. Wilson. We will continue to monitor for 24 hours both his blood pressure and his rhythm while he is here. He denies any headaches or other signs of C VA. He has no PND, orthopnea. No fever chills, night sweats. REVIEW OF SYSTEMS: 10-point review of systems is negative. See HPI for cardiac issues. PAST HISTORY: Includes hyperlipidemia, valvular heart disease, and aortic aneurysm 4 x 4.3, hypothyr oidism, remote surgeries. FAMILY HISTORY: Noncontributory. SOCIAL HISTORY: He is . He has 2 glass of wine at night. ALLERGIES: To penicillin and egg plant. EXAM: VITAL SIGNS: Blood pressure now is 104/70, heart rate in the 60s in sinus. GENERAL: He is a n elderly male who is alert, oriented, without any complaints. HEENT: Moist oropharynx. BACK, CVA, AND CHEST WALL: Without palpable tenderness. LUNGS: Clear to auscultation. CARDIOVASCU LAR: Regular rate and rhythm with a systolic murmur. He had good strong carotid pulses. ABDOMEN: Soft, nontender. MUSCULOSKELETAL: Showed no cyanosis, clubbing, or edema. LABS: White count of 5, hemoglobin of 13. His potassium is 4.1, BNP was elevated at 4580. Troponin is 0.6 and 0.04. ASSESSMENT: 1. Dizziness and lightheadedness of unclear etiology. The patient seems to relate his episodes to h is current bout of atrial fibrillation which was controlled with beta gladys therapy. He has been a dmitted and has had his blood pressure medicines held which I agree. At this point, he is asymptomat ic. Earlier this day, he apparently had some lightheadedness even with a systolic pressure of over 1 00 and in normal rhythm. For now, we will continue to hold all blood pressure medicine and follow bl ood pressures. If his systolic pressure becomes greater than 140/90 on 2 recordings we will re-add M icardis 40 mg p.o. daily. We will continue to monitor him as well. There is no evidence at this lon e of an ongoing cerebrovascular accident or any infections which would cause inner ear issues. He wyatt s agreed to stay in the hospital for 24 if not 48 hours more. Essentially we will give him a drug ho liday and re-add meds as tolerated. This was fully discussed with he and his . They understand and will agree to this plan. At this point, no further testing is necessary unless situation were to dictate. 2. History of hypertension. As above, will re-add medications as needed. 3. History of hyperlipidemia on chronic statin therapy. 4. History of paroxysmal atrial fibrillation, now in normal sinus rhythm. We will continue Eliquis without any beta blockers. /[id number]/MODL
--- NOTE | 2017-12-27 15:53 | ASMTCMCOM ---
CM Note CM Note Notes: 12/27/2017 Case Management Note Met w/pt during rounds this morning. ROBINS signed. Pt admitted evaluation and treatment of hypotension. Anticipating d/c tomorrow. Pt is to [facility] [phone]. They live in their own home. Pt is independent in ADL's. There are no identified case management d/c needs at this time. Case Management d/c poc: independent with follow up as directed. Case Management available if needs change. Date Signed: 12/27/2017 03:52 PM Electronically Signed By:Twila Goldman RN
--- NOTE | 2017-12-27 17:54 | PDMN ---
Medical Necessity Medical necessity: change to IP status per MD order as of 12/27/17. MCG M340 Syncope, 87 y/o continues with dizziness and lightheadedness. Continued telemetry needs, cardiology consult, holding all BP meds, still experiencing symptomatic hypotension. given ongoing hypotension despite minimizing medications, patient will need additional MN stay. Also important to note acute renal fx, 2nd to hypotension or possibly mild dehydration. Changing to IP. Hx HTN, lymphoma, and Afib.
[2017-12-27] MEDS: CYANO/VITAMIN B12 1000 MCG TAB PO SCH (20:45)
[2017-12-27] MEDS: ASCORBIC ACID 500 MG TAB PO SCH (20:45)
[2017-12-28] MEDS: LEVOTHYROXINE 200 MCG TAB PO SCH (06:28)
[2017-12-28 08:10] VITALS: BP 138/64
[2017-12-28] MEDS: APIXABAN 5 MG TAB PO SCH (08:48)
[2017-12-28] MEDS: CYANO/VITAMIN B12 1000 MCG TAB PO SCH (08:48)
[2017-12-28] MEDS: ASCORBIC ACID 500 MG TAB PO SCH (08:49)
--- NOTE | 2017-12-28 08:53 | SOAPPROG ---
SOAP Progress Note Assessment/Plan: Assessment:1. htn...follow home b/p ans use micardia 40 mg if b/p greater than 140/90 2. pafib..remains in nsr ..on eloquis Plan:1. d/c home and f/u with dr anthony 12/28/17 08:52 Subjective: pt doing well without cv c/o...pt wuth controlled b/p now..ok to d/c home with eloquis and follow b/p's if 140/90 or greater take micardis 40 mg qd ..pt to call our office tis week to further d/w dr anthony Objective: Vital Signs Temp Pulse Resp BP Pulse Ox 36.3 C 64 15 138/64 H 90 L 12/28/17 08:00 12/28/17 08:00 12/28/17 08:00 12/28/17 08:00 12/28/17 08:00 12/27/17 12/28/17 12/29/17 05:59 05:59 05:59 Intake Total 600 Balance 600 Physical Exam - Physical Exam Respiratory: lungs clear Cardiac/Chest: No edema, No JVD ICD10 Worksheet Patient Problems: Problems Problem Status Onset Orthostatic hypotension Acute Dehydration Acute Bradycardia Acute Hypertension Acute Hypotension Acute
[2017-12-28] MEDS ORDERED: ATORVASTATIN CALCIUM 40 MG TAB PO SCH (09:00)
[2017-12-28] MEDS ORDERED: ASPIRIN 81 MG CHEWABLE TAB PO SCH (09:00)
--- NOTE | 2017-12-28 10:42 | GDS ---
[f rep st] DISCHARGE SUMMARY DIAGNOSES: 1. Hypotension secondary to medications, resolved. 2. History of hypertension. 3. Atrial fibrillation. CONSULTATIONS: Cardiology, Dr. Mohan Del Rosario. HOSPITAL COURSE: The patient is an 87-year-old with a history of recently-diagnosed atrial fibrillat ion. He was started on Eliquis and metoprolol in addition to his Micardis and indapamide. He had be en taking these for the last 3 weeks and noted increasing orthostatic dizziness. It came to a point where he had almost passed out. On the morning of admission, he felt terrible and his systolic blood pressure was less than 90. He was admitted to the hospital. His medications were held except for t he Eliquis. Over the course of his hospitalization, his blood pressure eventually came up and he was asymptomatic. Cardiology did see the patient in consultation and recommended we stop his metoprolol , as well as his diuretic, and hold the Micardis until his blood pressure reaches levels greater than 140/90. The patient is willing to do this and understands the plan. He will continue Eliquis and a ll his other medications. CONDITION ON DISCHARGE: Good. VITAL SIGNS: Stable with a heart rate of 64 and sinus, blood pressure 138/64. He is 90% on room air . DISCHARGE MEDICATIONS: Please see discharge medication form. Followup will be with Dr. Wilson and Dr. Ohara. TOTAL TIME SPENT WITH PATIENT ON DAY OF DISCHARGE AND COORDINATION OF CARE: 30 minutes. Copy requested to: Sebastián Florez Dr. phone #[phone] /[id number]/MODL
== END 2017-12-28 10:26 | disposition home or self-care (01) | DRG 312 ==
LOC: F2W 17:00 → OBSVTOIN 12-27 13:14
PROVIDERS: ADMIT Internal Medicine; ATTEND Internal Medicine
DX: I95.2 Hypotension due to drugs (principal); T44.7X5A Adverse effect of beta-adrenoreceptor antagonists, initial encounter; T46.5X5A Adverse effect of other antihypertensive drugs, initial encounter; N17.9 Acute kidney failure, unspecified; I35.0 Nonrheumatic aortic (valve) stenosis; I10 Essential (primary) hypertension; I48.0 Paroxysmal atrial fibrillation; E03.9 Hypothyroidism, unspecified; E78.5 Hyperlipidemia, unspecified; I71.2 Thoracic aortic aneurysm, without rupture; C85.90 Non-Hodgkin lymphoma, unspecified, unspecified site; Z87.891 Personal history of nicotine dependence
CPT/HCPCS: 84484-PO; G0378